=== PATIENT | female | born 1940 | race Caucasian/White ===

== ENCOUNTER 2016-08-18 05:21 | Day surgery (SDC) | payer MEDICARE, OTHER ==
[~2016-08-18] VITALS: Ht 160 cm; Wt 57.0 kg
[~2016-08-18 05:21] MED LIST: ACET325T14 PO; AMLO10TA2 PO; ASPI-496 PO; AZIT500T77 PO; CEFD300C37 PO; CIPR500T87 PO; CYCL1DRO OP; DILT360C PO; DOXY100T PO; GUAI200T3 PO; GUAI5SYR PO; HYDR12.53 PO; IPRA3AMP INH; LEVO500T33 PO; LEVO75TA5 PO; LOSA1TAB18 PO; LOSA50TA2 PO; MAGN400T26 PO; MOME13HF INH; POTA20TA89 PO; PRAV40TA2 PO; PRED10TA PO; PRED20TA PO; [UNRECOGNIZED DRUG - OTHER]
[2016-08-18 06:10] VITALS: BP 154/75
[2016-08-18] MEDS ORDERED: LACTATED RINGERS 1,000 ML IV SCH (06:10)
[2016-08-18] MEDS ORDERED: BUPIVACAINE/PF 0.5% ONE (06:17)
[2016-08-18] MEDS ORDERED: methylPREDNISolone *ACETATE* 40 MG/ML ONE (06:17)
[2016-08-18] MEDS ORDERED: MAGN400T7 PO (06:45)
[2016-08-18] MEDS ORDERED: LOSA100T2 PO ×2 (06:45)
[2016-08-18] MEDS ORDERED: TRAM50TA2 PO (06:45)
[2016-08-18] MEDS ORDERED: DOCU-30 PO (06:45)
[2016-08-18] MEDS ORDERED: PROPOFOL 10 MG/ML, 20ML ONE (06:51)
[2016-08-18] MEDS ORDERED: DEXAMETHASONE 4 MG/ML, 1ML ONE (06:51)
[2016-08-18] MEDS ORDERED: ONDANSETRON 2MG/ML, 2ML ONE (06:51)
[2016-08-18 06:52] LABS: ASPARTATE AMINO TRANSFERASE 74 U/L (15-37); BLOOD UREA NITROGEN 12 mg/dL (7-18)
[2016-08-18] MEDS ORDERED: ONDANSETRON 2MG/ML, 2ML IVPush PRN (07:00)
[2016-08-18] MEDS ORDERED: OXYcodone 5 MG/5 ML ORAL.SOL UDC PO PRN (07:00)
[2016-08-18] MEDS ORDERED: ALBUTEROL SULFATE 2.5 MG/3 ML NPPB PRN (07:00)
[2016-08-18] MEDS ORDERED: ACETAMINOPHEN 325 MG TABLET PO PRN (07:00)
[2016-08-18] MEDS ORDERED: FENTANYL PF 100 MCG/2ML IV PRN (07:00)
[2016-08-18] MEDS ORDERED: MEPERIDINE/PF 25MG/0.5ML IVPush PRN (07:00)
[2016-08-18] MEDS ORDERED: PROMETHAZINE 25 MG/ML, 1ML IV PRN (07:00)
[2016-08-18] MEDS ORDERED: hydrALAzine 20 MG/ML, 1ML IV PRN (07:00)
[2016-08-18] MEDS ORDERED: HYDROmorphone 1 MG/ML, 1ML IV PRN (07:00)
[2016-08-18] MEDS ORDERED: MIDAZOLAM 1 MG/ML, 2ML IV PRN (07:00)
[2016-08-18] MEDS ORDERED: LABETALOL 5MG/ML, 20ML IV PRN (07:00)
[2016-08-24] MEDS ORDERED: NITR0.4T8 SL (12:11)
[2016-08-24] MEDS ORDERED: ECON15CR TD (12:11)
[2016-08-24] MEDS ORDERED: FURO20TA3 PO (12:11)
== END 2016-08-18 08:30 | disposition home or self-care (01) ==
LOC: OUT 05:21
PROVIDERS: ATTEND Orthopaedic Surgery
DX: M16.7 Other unilateral secondary osteoarthritis of hip (principal); M87.851 Other osteonecrosis, right femur; I10 Essential (primary) hypertension; J44.9 Chronic obstructive pulmonary disease, unspecified; J84.10 Pulmonary fibrosis, unspecified; E03.9 Hypothyroidism, unspecified; E78.5 Hyperlipidemia, unspecified; Z99.81 Dependence on supplemental oxygen
CPT/HCPCS: 20610; 36415; 73501; 77002; 80053; J1100; J2405; J2704; J3490; J7120; 76000; J1030

== ENCOUNTER → 2016-08-24 | Outpatient (CLI) | payer MEDICARE, OTHER ==
[~2016-08-24] MED LIST changes: +DOCU-30 PO; +ECON15CR TD; +FURO20TA3 PO; +LOSA100T2 PO; +MAGN400T7 PO; +NITR0.4T8 SL; +TRAM50TA2 PO
[2016-08-24 13:01] LABS: ASPARTATE AMINO TRANSFERASE 79 U/L (15-37); BLOOD UREA NITROGEN 13 mg/dL (7-18)
== END | disposition home or self-care (01) ==
LOC: STAR 11:36
PROVIDERS: ATTEND Orthopaedic Surgery
DX: M16.7 Other unilateral secondary osteoarthritis of hip (principal)
CPT/HCPCS: 36415; 80053; 81003; 85025; 87081

== ENCOUNTER 2016-09-03 09:17 | Inpatient (IN) | payer MEDICARE, OTHER ==
[~2016-09-03] VITALS: Ht 160 cm; Wt 63.8 kg
[2016-09-03] MEDS ORDERED: LACTATED RINGERS 1,000 ML IV SCH (09:43)
[2016-09-03] MEDS ORDERED: VANCOMYCIN PER PHARMACY MC PRN (10:00)
[2016-09-03] MEDS ORDERED: VANCOMYCIN PMX 1GM/200ML 200 ML IV ONE (10:00)
[2016-09-03] MEDS ORDERED: SCOPOLAMINE PATCH, 1.5MG PATCH.TD72 TD STA (10:00)
[2016-09-03] MEDS ORDERED: SCOPOLAMINE PATCH, 1.5MG PATCH.TD72 TD ONE (10:13)
[2016-09-03] MEDS ORDERED: LIDOCAINE 1%, 2ML ONE (10:14)
[2016-09-03] MEDS ORDERED: KETOROLAC 60 MG/2 ML ONE (10:22)
[2016-09-03] MEDS ORDERED: TRANEXAMIC ACID 100 MG/ML, 10ML ONE (10:22)
[2016-09-03] MEDS ORDERED: ROPIvacaine/PF 0.2%, 20 ML ONE (10:22)
[2016-09-03] MEDS ORDERED: EPINEPHRINE 1 MG/ML, 1ML ONE (10:23)
[2016-09-03] MEDS ORDERED: LIDOCAINE 1%, 2ML SQ PRN (11:00)
[2016-09-03] MEDS ORDERED: FENTANYL PF 250 MCG/5ML ONE (11:02)
[2016-09-03] MEDS ORDERED: FENTANYL PF 100 MCG/2ML ONE ×3 (11:37→14:21)
[2016-09-03] MEDS ORDERED: HYDROmorphone 1 MG/ML, 1ML IV PRN ×2 (12:00→14:00)
[2016-09-03] MEDS ORDERED: hydrALAzine 20 MG/ML, 1ML IV PRN (12:00)
[2016-09-03] MEDS ORDERED: MEPERIDINE/PF 25MG/0.5ML IVPush PRN (12:00)
[2016-09-03] MEDS ORDERED: MIDAZOLAM 1 MG/ML, 2ML IV PRN (12:00)
[2016-09-03] MEDS ORDERED: LABETALOL 5MG/ML, 20ML IV PRN (12:00)
[2016-09-03] MEDS ORDERED: ONDANSETRON 2MG/ML, 2ML IVPush PRN (12:00)
[2016-09-03] MEDS ORDERED: PROMETHAZINE 25 MG/ML, 1ML IV PRN (12:00)
[2016-09-03] MEDS ORDERED: OXYcodone 5 MG/5 ML ORAL.SOL UDC PO PRN (12:00)
[2016-09-03] MEDS ORDERED: ALBUTEROL SULFATE 2.5 MG/3 ML NPPB PRN (12:00)
[2016-09-03] MEDS ORDERED: BISACODYL 10 MG SUPP PR PRN (14:00)
[2016-09-03] MEDS ORDERED: ONDANSETRON 4 MG TABLET PO PRN (14:00)
[2016-09-03] MEDS ORDERED: SENNA/DOCUSATE TABLET PO PRN (14:00)
[2016-09-03] MEDS ORDERED: ALUMINUM/MAG/SIMETHICONE 30 ML UDC PO PRN (14:00)
[2016-09-03] MEDS ORDERED: MAGNESIUM HYDROXIDE 8%, 30ML UDC PO PRN (14:00)
[2016-09-03] MEDS ORDERED: HYDROcodone/APAP 5/325 TABLET PO PRN (14:00)
[2016-09-03] MEDS ORDERED: OXYcodone 5 MG/5 ML ORAL.SOL UDC ONE ×2 (14:21→14:33)
[2016-09-03] MEDS: FENTANYL PF 100 MCG/2ML IV PRN ×3 (14:30→14:50)
[2016-09-03] MEDS ORDERED: DEXAMETHASONE 4 MG/ML, 1ML ONE (15:35)
[2016-09-03] MEDS ORDERED: ONDANSETRON 2MG/ML, 2ML ONE (15:35)
[2016-09-03] MEDS ORDERED: PROPOFOL 10 MG/ML, 20ML ONE (15:35)
[2016-09-03] MEDS ORDERED: ROCURONIUM 10 MG/ML ONE (15:35)
[2016-09-03] MEDS ORDERED: SUCCINYLCHOLINE 20 MG/ML, 10ML ONE (15:35)
[2016-09-03 15:58] VITALS: BP 118/68
[2016-09-03] MEDS: D5%-0.45NACL+KCL 20MEQ 1,000 ML IV SCH ×2 (16:00→21:42)
[2016-09-03] MEDS ORDERED: NITROGLYCERIN 0.4 MG BOTTLE (25 TABS) SL PRN (17:00)
[2016-09-03] MEDS ORDERED: PHARMACOKINETIC MONITORING MC PRN (17:30)
[2016-09-03] MEDS: CEFAZOLIN PMX 1GM/50ML 50 ML IVPB SCH (18:21)
[2016-09-03 19:45] VITALS: BP 123/58
[2016-09-03] MEDS ORDERED: LOSARTAN 50MG TABLET PO SCH (21:00)
[2016-09-03] MEDS: PRAVASTATIN 40 MG TABLET PO SCH (21:31)
[2016-09-03] MEDS: DOCUSATE 100 MG CAPSULE PO SCH (21:31)
[2016-09-03] MEDS: RESTASIS EYE OP SCH (21:42)
[2016-09-03] MEDS ORDERED: SODIUM CHLORIDE 0.9% 1,000ML IVBOLUS ONE (23:30)
[2016-09-04 00:34] VITALS: BP 76/45
[2016-09-04] MEDS: CEFAZOLIN PMX 1GM/50ML 50 ML IVPB SCH (01:19)
[2016-09-04] MEDS: VANCOMYCIN PMX 1GM/200ML 200 ML IV SCH (04:57)
[2016-09-04] MEDS: LEVOTHYROXINE 75 MCG TABLET PO SCH (05:03)
[2016-09-04 05:24] VITALS: BP 97/39
[2016-09-04 06:30] VITALS: BP 95/48
[2016-09-04] MEDS: FUROSEMIDE 40 MG TABLET PO SCH (08:11)
[2016-09-04] MEDS: DOCUSATE 100 MG CAPSULE PO SCH ×2 (08:11→22:03)
[2016-09-04] MEDS: POTASSIUM CHLORIDE 20 MEQ TAB.ER.PRT PO SCH (08:12)
[2016-09-04] MEDS: LOSARTAN 50MG TABLET PO SCH (08:12)
[2016-09-04] MEDS: RESTASIS EYE OP SCH ×2 (08:12→22:03)
[2016-09-04 14:55] VITALS: BP 94/54
[2016-09-04] MEDS: D5%-0.45NACL+KCL 20MEQ 1,000 ML IV SCH (16:28)
[2016-09-04] MEDS: ASPIRIN 325 MG TABLET EC PO SCH (17:50)
[2016-09-04 19:20] VITALS: BP 92/46
[2016-09-04] MEDS: PRAVASTATIN 40 MG TABLET PO SCH (22:03)
[2016-09-05 01:42] VITALS: BP 100/57
[2016-09-05] MEDS: VANCOMYCIN PMX 1GM/200ML 200 ML IV SCH (05:32)
[2016-09-05] MEDS: LEVOTHYROXINE 75 MCG TABLET PO SCH (05:32)
[2016-09-05] MEDS: ASPIRIN 325 MG TABLET EC PO SCH (05:32)
[2016-09-05] MEDS: D5%-0.45NACL+KCL 20MEQ 1,000 ML IV SCH (05:48)
[2016-09-05 08:07] VITALS: BP 115/64
[2016-09-05] MEDS ORDERED: DOCU-30 PO (08:18)
[2016-09-05] MEDS ORDERED: HYDR-3240 PO (08:18)
[2016-09-05] MEDS: RESTASIS EYE OP SCH (10:45)
[2016-09-05] MEDS: FUROSEMIDE 40 MG TABLET PO SCH (10:46)
[2016-09-05] MEDS: DOCUSATE 100 MG CAPSULE PO SCH (10:46)
[2016-09-05] MEDS: LOSARTAN 50MG TABLET PO SCH (10:46)
[2016-09-05] MEDS: POTASSIUM CHLORIDE 20 MEQ TAB.ER.PRT PO SCH (10:47)
[2016-09-05 13:10] VITALS: BP 117/68
== END 2016-09-05 14:11 | disposition home or self-care (01) | DRG 470 ==
LOC: ORIP 09:17 → 4NOR 15:48
PROVIDERS: ADMIT Orthopaedic Surgery; ATTEND Orthopaedic Surgery
PROC: 0SP904Z Removal of Internal Fixation Device from Right Hip Joint, Open Approach (ICD-10-PCS; 2016-09-03)
PROC: 0SR902Z Replacement of Right Hip Joint with Metal on Polyethylene Synthetic Substitute, Open Approach (ICD-10-PCS; principal; 2016-09-03 11:00)
DX: M16.11 Unilateral primary osteoarthritis, right hip (principal); D62 Acute posthemorrhagic anemia; E03.9 Hypothyroidism, unspecified; E78.00 Pure hypercholesterolemia, unspecified; I10 Essential (primary) hypertension; I25.10 Atherosclerotic heart disease of native coronary artery without angina pectoris; J44.9 Chronic obstructive pulmonary disease, unspecified; M21.70 Unequal limb length (acquired), unspecified site; M85.80 Other specified disorders of bone density and structure, unspecified site; Z87.891 Personal history of nicotine dependence; Z96.641 Presence of right artificial hip joint; I25.2 Old myocardial infarction; E78.5 Hyperlipidemia, unspecified
CPT/HCPCS: 36415; 72170; 82565; 85014; 86850; 86900; C1713; J0171; J0690; J1100; J1885; J2405; J2704; J2795; J3010; J3370; J3490; C1769; C1776; J0330; J3480; J7030; J7120

== ENCOUNTER 2017-01-20 10:00 | Observation (INO) | payer MEDICARE, OTHER ==
[~2017-01-20] VITALS: Ht 152.4 cm; Wt 56.9 kg
[~2017-01-20 10:00] MED LIST changes: +AZIT500T5 PO; -AZIT500T77 PO; +DOCU-131 PO; -DOCU-30 PO; +HYDR-3240 PO; -LEVO500T33 PO; +LEVO500T47 PO; +NITR0.4T28 SL; -NITR0.4T8 SL
[2017-01-20] MEDS ORDERED: SODIUM CHLORIDE 0.9% 1,000 ML IV ONE (10:22)
[2017-01-20] MEDS ORDERED: SODIUM CHLORIDE FLUSH 10ML SYR IVF ONE (10:30)
[2017-01-20 11:10] LABS: HEMATOCRIT 41.2 % (34.6-47.8); HEMOGLOBIN 13.4 g/dL (11.7-16.4); WHITE BLOOD COUNT 8.9 x10^3/uL (3.4-10)
[2017-01-20 11:16] LABS: ASPARTATE AMINO TRANSFERASE 59 U/L (15-37); BLOOD UREA NITROGEN 17 mg/dL (7-18)
[2017-01-20 11:23] LABS: IS PT STATUS REG ER OR PRE ER? YES
[2017-01-20] MEDS ORDERED: CEFAZOLIN PMX 1GM/50ML 50 ML IVPB ONE (11:30)
[2017-01-20] MEDS ORDERED: ACETAMINOPHEN 325 MG TABLET PO PRN (11:30)
[2017-01-20] MEDS ORDERED: LOSA1TAB16 PO (11:44)
[2017-01-20] MEDS ORDERED: [UNRECOGNIZED DRUG - CODE] TP (11:44)
[2017-01-20] MEDS ORDERED: DOCU-131 PO (11:44)
[2017-01-20] MEDS ORDERED: CELE200C PO (11:44)
[2017-01-20] MEDS ORDERED: NITROGLYCERIN 0.4 MG BOTTLE (25 TABS) SL PRN (12:00)
[2017-01-20] MEDS ORDERED: CEFAZOLIN PMX 1GM/50ML 0 ML ONE (12:06)
[2017-01-20] MEDS ORDERED: CEFAZOLIN PMX 1GM/50ML 50 ML ONE ×2 (12:15→13:08)
[2017-01-20] MEDS: SODIUM CHLORIDE 0.9% 1,000 ML IV SCH ×2 (12:18→15:32)
[2017-01-20] MEDS ORDERED: CEFAZOLIN 1,000 MG ONE (13:08)
[2017-01-20] MEDS ORDERED: MIDAZOLAM 1 MG/ML, 5ML ONE (13:08)
[2017-01-20] MEDS ORDERED: LIDOCAINE 2%, 20ML ONE (13:08)
[2017-01-20] MEDS ORDERED: FENTANYL PF 100 MCG/2ML ONE (13:08)
[2017-01-20] MEDS ORDERED: HYDROcodone/APAP 5/325 TABLET PO PRN (15:00)
[2017-01-20 15:08] VITALS: BP 158/73
[2017-01-20] MEDS: PLEASE ENTER WEIGHT MC SCH ×2 (15:32→20:00)
[2017-01-20] MEDS ORDERED: MAGNESIUM SULFATE PMX 2GM/50ML 50 ML IV ONE (16:00)
[2017-01-20 20:56] VITALS: BP 132/78
[2017-01-20] MEDS ORDERED: ASPIRIN 81 MG TABLET EC PO SCH (21:00)
[2017-01-20] MEDS ORDERED: PRAVASTATIN 40 MG TABLET PO SCH (21:00)
[2017-01-20] MEDS ORDERED: SODIUM CHLORIDE FLUSH 10ML SYR IVF SCH (21:00)
[2017-01-20] MEDS: DOCUSATE 100 MG CAPSULE PO SCH (21:09)
[2017-01-20] MEDS: CEFAZOLIN PMX 1GM/50ML 50 ML IVPB SCH (21:09)
[2017-01-20] MEDS: SODIUM CHLORIDE FLUSH 10ML SYR IVF SCH (21:14)
[2017-01-21] MEDS ORDERED: VANCOMYCIN PMX 1GM/200ML 200 ML IVPB ONE (01:00)
[2017-01-21 02:07] VITALS: BP 168/98
[2017-01-21] MEDS: SODIUM CHLORIDE 0.9% 1,000 ML IV SCH ×2 (03:27→09:40)
[2017-01-21] MEDS: PLEASE ENTER WEIGHT MC SCH (04:00)
[2017-01-21 04:30] VITALS: BP 150/77
[2017-01-21] MEDS: CEFAZOLIN PMX 1GM/50ML 50 ML IVPB SCH (05:18)
[2017-01-21 08:45] VITALS: BP 173/92
[2017-01-21] MEDS: DOCUSATE 100 MG CAPSULE PO SCH (09:00)
[2017-01-21] MEDS ORDERED: LEVOTHYROXINE 75 MCG TABLET PO SCH (09:00)
[2017-01-21] MEDS ORDERED: FUROSEMIDE 40 MG TABLET PO SCH (09:00)
[2017-01-21] MEDS ORDERED: LOSARTAN 50MG TABLET PO SCH (09:00)
[2017-01-21] MEDS ORDERED: POTASSIUM CHLORIDE 20 MEQ TAB.ER.PRT PO SCH ×2 (09:00→14:00)
[2017-01-21] MEDS: SODIUM CHLORIDE FLUSH 10ML SYR IVF SCH (09:34)
[2017-01-21 14:22] VITALS: BP 125/87
[2017-01-21] MEDS ORDERED: DOCUSATE 100 MG CAPSULE PO SCH (21:00)
[2017-01-22] MEDS ORDERED: FUROSEMIDE 40 MG TABLET PO SCH (09:00)
== END 2017-01-21 15:26 | disposition home or self-care (01) ==
LOC: ED 11:29 → EDIP 11:30 → ED 12:24 → 5SO 14:57 → DCLOUNGE 01-21 14:43
PROVIDERS: ADMIT Internal Medicine Cardiovascular Disease; ATTEND Internal Medicine Cardiovascular Disease
DX: I44.2 Atrioventricular block, complete (principal); I25.10 Atherosclerotic heart disease of native coronary artery without angina pectoris; I25.2 Old myocardial infarction; E78.5 Hyperlipidemia, unspecified; J44.9 Chronic obstructive pulmonary disease, unspecified; E03.9 Hypothyroidism, unspecified; E83.42 Hypomagnesemia; E87.1 Hypo-osmolality and hyponatremia; I11.0 Hypertensive heart disease with heart failure; M19.90 Unspecified osteoarthritis, unspecified site; J43.9 Emphysema, unspecified; I50.9 Heart failure, unspecified; Z87.891 Personal history of nicotine dependence; Z96.641 Presence of right artificial hip joint; Z90.49 Acquired absence of other specified parts of digestive tract; Z90.710 Acquired absence of both cervix and uterus; Z99.81 Dependence on supplemental oxygen
CPT/HCPCS: 33208; 36415; 71010; 80053; 83735; 84443; 84484; 85025; 85610; 93005; 96365; 96366; 96367; 96376; 99156; 99157; 99291; C1779; C1785; C1892; G0378; J0690; J2250; J3010; J3475; J3490; J7030

== ENCOUNTER → 2017-09-13 | Outpatient (CLI) | payer MEDICARE, OTHER ==
[~2017-09-13] MED LIST changes: +CELE200C PO; -LOSA1TAB18 PO; +LOSA1TAB19 PO; +LOSA1TAB25 PO; +[UNRECOGNIZED DRUG - CODE] TP
== END ==
LOC: CFH 11:10
PROVIDERS: ATTEND Genetic Counselor, MS
DX: Z12.31 Encounter for screening mammogram for malignant neoplasm of breast (principal)
CPT/HCPCS: 77063; 77067

== ENCOUNTER → 2017-09-24 | Outpatient (CLI) | payer MEDICARE, OTHER ==
[~2017-09-24] MED LIST changes: +REGADENOSON 0.4 MG/5 ML SYRINGE ONE
== END | disposition home or self-care (01) ==
LOC: CFH 08:11
PROVIDERS: ATTEND Internal Medicine Cardiovascular Disease
DX: I25.89 Other forms of chronic ischemic heart disease (principal); Z98.61 Coronary angioplasty status
CPT/HCPCS: 78452; 93017; A9502; J2785

== ENCOUNTER → 2017-11-08 | Outpatient (CLI) | payer MEDICARE, OTHER ==
[~2017-11-08] MED LIST changes: -IPRA3AMP INH; +IPRA3AMP30 INH; -REGADENOSON 0.4 MG/5 ML SYRINGE ONE
== END | disposition home or self-care (01) ==
LOC: CFH 15:34
PROVIDERS: ATTEND Internal Medicine Cardiovascular Disease
DX: J44.9 Chronic obstructive pulmonary disease, unspecified (principal); R59.0 Localized enlarged lymph nodes; I25.10 Atherosclerotic heart disease of native coronary artery without angina pectoris; I51.7 Cardiomegaly
CPT/HCPCS: 71250

== ENCOUNTER 2018-01-21 09:40 | Inpatient (IN) | payer MEDICARE, OTHER ==
[~2018-01-21] VITALS: Ht 157.5 cm; Wt 61.1 kg
[~2018-01-21 09:40] MED LIST changes: -AMLO10TA2 PO; +AMLO10TA6 PO
[2018-01-21] MEDS ORDERED: SODIUM CHLORIDE FLUSH 10ML SYR IVF ONE (10:00)
[2018-01-21] MEDS ORDERED: ALBUTEROL/IPRATROPIUM 2.5MG/0.5MG, 3 ML ONE (10:26)
[2018-01-21 10:31] LABS: ALANINE AMINOTRANSFERASE 27 U/L (12-78); ALBUMIN 3.1 g/dL (3.4-5.0); ANION GAP 7 mmol/L (5-15); CHLORIDE 99 mmol/L (98-107); CREATININE 0.79 mg/dL (0.55-1.02)
[2018-01-21 10:33] LABS: ALKALINE PHOSPHATASE 207 U/L (45-117); BILIRUBIN,TOTAL 0.6 mg/dL (0.2-1.0); TOTAL PROTEIN 7.5 g/dL (6.4-8.2)
[2018-01-21] MEDS: ALBUTEROL/IPRATROPIUM 2.5MG/0.5MG, 3 ML NPPB SCH ×4 (10:40→19:28)
[2018-01-21 10:44] LABS: MEAN CORPUSCULAR HEMOGLOBIN 24.5 pg (27.0-34.8); MEAN CORPUSCULAR HGB CONC 31.7 g/dL (32.4-35.8); MEAN CORPUSCULAR VOLUME 77.2 fL (80-100); MEAN PLATELET VOLUME 12.1 fL (7.4-10.4); PLATELET COUNT 231 x10^3/uL (130-400); RED BLOOD COUNT 5.07 x10^6/uL (3.82-5.3); RED CELL DISTRIBUTION WIDTH 16.7 % (9.6-15.2)
[2018-01-21 11:10] LABS: BASOPHILS # (AUTO) 0.02 x10^3/uL (0-0.1); BASOPHILS % (AUTO) 0 % (0-1); EOSINOPHILS # (AUTO) 0.33 x10^3/uL (0-0.4); EOSINOPHILS % (AUTO) 5 % (1-7); LYMPHOCYTES # (AUTO) 2.28 x10^3/uL (1-3.4); LYMPHOCYTES % (AUTO) 31 % (22-44); MD SCAN; MONOCYTES # (AUTO) 0.32 x10^3/uL (0.2-0.8); MONOCYTES % (AUTO) 4 % (2-9); NEUTROPHILS # (AUTO) 4.41 x10^3/uL (1.8-6.8); NEUTROPHILS % (AUTO) 60 % (42-75)
[2018-01-21] MEDS ORDERED: CEFTRIAXONE 1,000 MG in SODIUM CHLORIDE 0.9% 50 ML IVPB ONE (12:00)
[2018-01-21] MEDS ORDERED: TRAZODONE 50MG TABLET PO PRN (13:30)
[2018-01-21] MEDS ORDERED: ACETAMINOPHEN 325 MG TABLET PO PRN (13:30)
[2018-01-21] MEDS ORDERED: LABETALOL 5MG/ML, 20ML IVPush PRN (13:30)
[2018-01-21] MEDS ORDERED: DOCUSATE 100 MG CAPSULE PO PRN (13:30)
[2018-01-21] MEDS ORDERED: BISACODYL 10 MG SUPP PR PRN (13:30)
[2018-01-21] MEDS ORDERED: hydrALAzine 20 MG/ML, 1ML IVPush PRN (13:30)
[2018-01-21 13:45] VITALS: BP 136/69
[2018-01-21 14:16] LABS: THYROID STIMULATING HORMONE 4.38 mIU/L (0.358-3.740)
[2018-01-21] MEDS: DOXYCYCLINE 100 MG in DEXTROSE 5% 250 ML IV SCH (14:25)
[2018-01-21] MEDS: CEFTRIAXONE PMX 1GM/50ML 50 ML IV SCH (15:41)
[2018-01-21 18:45] LABS: D-DIMER 1.58 ug/mlFEU (0.00-0.52); INTERNATIONAL NORMALIZED RATIO 0.99 (0.93-1.1); PROTHROMBIN TIME 10.2 Seconds (9.6-11.5)
[2018-01-21 20:33] VITALS: BP 125/66
[2018-01-21] MEDS: FUROSEMIDE 20 MG/2 ML IV SCH (20:50)
[2018-01-21] MEDS: ASPIRIN 81 MG TABLET EC PO SCH (20:50)
[2018-01-21] MEDS: PRAVASTATIN 40 MG TABLET PO SCH (20:50)
[2018-01-22] MEDS: DOXYCYCLINE 100 MG in DEXTROSE 5% 250 ML IV SCH (01:57)
[2018-01-22 03:21] VITALS: BP 118/70
[2018-01-22 05:32] LABS: MEAN CORPUSCULAR HEMOGLOBIN 24.3 pg (27.0-34.8); MEAN CORPUSCULAR HGB CONC 32.2 g/dL (32.4-35.8); MEAN CORPUSCULAR VOLUME 75.7 fL (80-100); MEAN PLATELET VOLUME 11.5 fL (7.4-10.4); PLATELET COUNT 224 x10^3/uL (130-400); RED BLOOD COUNT 4.55 x10^6/uL (3.82-5.3); RED CELL DISTRIBUTION WIDTH 16.2 % (9.6-15.2)
[2018-01-22 05:35] LABS: CHLORIDE 97 mmol/L (98-107)
[2018-01-22] MEDS ORDERED: OMNIPAQUE 350 MG/ML, 100ML BOTTLE ONE (05:40)
[2018-01-22 05:59] LABS: ALANINE AMINOTRANSFERASE 20 U/L (12-78); ALBUMIN 2.5 g/dL (3.4-5.0); ALKALINE PHOSPHATASE 163 U/L (45-117); ANION GAP 10 mmol/L (5-15); BILIRUBIN,TOTAL 0.3 mg/dL (0.2-1.0); CALCIUM 8.4 mg/dL (8.5-10.1); CHOL/HDL RATIO 2.6; CHOLESTEROL, TOTAL 146 mg/dL (140-239); CREATININE 0.74 mg/dL (0.55-1.02); HDL CHOL % 38 % (28-40); HDL CHOLESTEROL (DIRECT) 56 mg/dL (40-60); LDL CHOLESTEROL,CALCULATED 83 mg/dL (54-169); LDL/HDL RATIO 1.5 (0.5-3.0); TOTAL PROTEIN 6.5 g/dL (6.4-8.2); TRIGLYCERIDES 34 mg/dL (50-200); VLDL CHOLESTEROL 7 mg/dL (0-25)
[2018-01-22] MEDS ORDERED: MAGNESIUM SULFATE 3 GM in SODIUM CHLORIDE 0.9% 100 ML IV ONE (06:30)
[2018-01-22] MEDS: ALBUTEROL/IPRATROPIUM 2.5MG/0.5MG, 3 ML NPPB SCH ×3 (07:00→18:53)
[2018-01-22 07:46] LABS: ANISOCYTOSIS 1+; BASOPHILS # (AUTO) 0.16 x10^3/uL (0-0.1); BASOPHILS % (AUTO) 2 % (0-1); EOSINOPHILS # (AUTO) 0.18 x10^3/uL (0-0.4); EOSINOPHILS % (AUTO) 2 % (1-7); LYMPHOCYTES % (AUTO) 13 % (22-44); MD MORPH REVIEW ONLY; MICROCYTOSIS 1+; MONOCYTES % (AUTO) 9 % (2-9); NEUTROPHILS % (AUTO) 75 % (42-75); OVALOCYTES 1+
[2018-01-22 07:47] LABS: <PLATELET ESTIMATE> ADEQUATE; LARGE PLATELETS 1+
[2018-01-22 08:00] VITALS: BP 126/71
[2018-01-22] MEDS: FUROSEMIDE 20 MG/2 ML IV SCH ×2 (08:29→20:04)
[2018-01-22] MEDS: LOSARTAN 50MG TABLET PO SCH (08:30)
[2018-01-22] MEDS: LEVOTHYROXINE 88 MCG TABLET PO SCH (08:30)
[2018-01-22] MEDS ORDERED: TEMPLATE NON-FORMULARY MED. (Losartan/Hydrochlorothiazide** (Losartan-Hctz 50-12.5 Mg Tab PO SCH (09:00)
[2018-01-22] MEDS ORDERED: HYDROCHLOROTHIAZIDE 12.5 MG CAPSULE PO SCH (09:00)
[2018-01-22] MEDS: ECONAZOLE NITRATE TP SCH (09:00)
[2018-01-22] MEDS ORDERED: LEVOTHYROXINE 75 MCG TABLET PO SCH (09:00)
[2018-01-22] MEDS ORDERED: FUROSEMIDE 40 MG TABLET PO SCH (09:00)
[2018-01-22] MEDS ORDERED: MAGNESIUM SULFATE PMX 2GM/50ML 50 ML IV ONE (10:00)
[2018-01-22] MEDS ORDERED: ALBUTEROL/IPRATROPIUM 2.5MG/0.5MG, 3 ML ONE ×2 (10:26→13:55)
[2018-01-22] MEDS: AZITHROMYCIN 500 MG in SODIUM CHLORIDE 0.9% 250 ML IV SCH (11:39)
[2018-01-22 13:31] VITALS: BP 132/79
[2018-01-22] MEDS: CEFTRIAXONE PMX 1GM/50ML 50 ML IV SCH (15:48)
[2018-01-22 20:01] VITALS: BP 119/71
[2018-01-22] MEDS: ASPIRIN 81 MG TABLET EC PO SCH (20:04)
[2018-01-22] MEDS: PRAVASTATIN 40 MG TABLET PO SCH (20:04)
[2018-01-23 01:21] VITALS: BP 123/69
[2018-01-23 06:46] VITALS: BP 139/85
[2018-01-23] MEDS: ALBUTEROL/IPRATROPIUM 2.5MG/0.5MG, 3 ML NPPB SCH ×2 (08:13→14:31)
[2018-01-23] MEDS: ECONAZOLE NITRATE TP SCH (09:00)
[2018-01-23] MEDS: FUROSEMIDE 20 MG/2 ML IV SCH (09:03)
[2018-01-23] MEDS: LOSARTAN 50MG TABLET PO SCH (09:04)
[2018-01-23] MEDS: LEVOTHYROXINE 88 MCG TABLET PO SCH (09:06)
[2018-01-23] MEDS: AZITHROMYCIN 500 MG in SODIUM CHLORIDE 0.9% 250 ML IV SCH (09:09)
[2018-01-23] MEDS ORDERED: CEFD300C37 PO (12:10)
[2018-01-23] MEDS ORDERED: AZIT500T5 PO (12:10)
[2018-01-23 12:16] VITALS: BP 116/75
[2018-01-23] MEDS: CEFTRIAXONE PMX 1GM/50ML 50 ML IV SCH (15:54)
== END 2018-01-23 18:27 | disposition home or self-care (01) | DRG 177 ==
LOC: ED 11:05 → EDIP 11:47 → 3NE 13:24 → 4WST 18:16
PROVIDERS: ADMIT Hospitalist; ATTEND Hospitalist
DX: J15.1 Pneumonia due to Pseudomonas (principal); J96.21 Acute and chronic respiratory failure with hypoxia; J44.1 Chronic obstructive pulmonary disease with (acute) exacerbation; I44.2 Atrioventricular block, complete; E87.1 Hypo-osmolality and hyponatremia; J44.0 Chronic obstructive pulmonary disease with (acute) lower respiratory infection; E78.5 Hyperlipidemia, unspecified; I50.9 Heart failure, unspecified; K59.09 Other constipation; E03.9 Hypothyroidism, unspecified; Z96.641 Presence of right artificial hip joint; J84.10 Pulmonary fibrosis, unspecified; R74.8 Abnormal levels of other serum enzymes; R74.0 Nonspecific elevation of levels of transaminase and lactic acid dehydrogenase [LDH]; I11.0 Hypertensive heart disease with heart failure; I25.10 Atherosclerotic heart disease of native coronary artery without angina pectoris; I25.2 Old myocardial infarction; Z82.49 Family history of ischemic heart disease and other diseases of the circulatory system; Z87.891 Personal history of nicotine dependence; Z90.710 Acquired absence of both cervix and uterus; Z95.0 Presence of cardiac pacemaker; Z90.49 Acquired absence of other specified parts of digestive tract; Z90.89 Acquired absence of other organs; Z79.82 Long term (current) use of aspirin; Z79.899 Other long term (current) drug therapy
CPT/HCPCS: 36415; 71045; 71275; 80053; 80061; 83605; 83735; 83880; 84100; 84443; 85025; 85379; 85610; 85730; 87040; 87070; 87077; 87186; 87205; 93306; 94640; 99285; G0378; J0456; J0696; J3475; J7060; J7620; Q9967; J1940; J7050; J7512

== ENCOUNTER 2018-02-10 19:41 | Inpatient (IN) | payer MEDICARE, OTHER ==
[~2018-02-10] VITALS: Ht 152.4 cm; Wt 59.9 kg
[2018-02-10] MEDS: ALBUTEROL/IPRATROPIUM 2.5MG/0.5MG, 3 ML NPPB SCH ×2 (19:59→21:09)
[2018-02-10 20:21] LABS: ALANINE AMINOTRANSFERASE 25 U/L (12-78); ALBUMIN 3.2 g/dL (3.4-5.0); ANION GAP 7 mmol/L (5-15); CALCIUM 8.6 mg/dL (8.5-10.1); CHLORIDE 97 mmol/L (98-107); CREATININE 0.98 mg/dL (0.55-1.02)
[2018-02-10 20:23] LABS: ALKALINE PHOSPHATASE 190 U/L (45-117); BILIRUBIN,TOTAL 0.6 mg/dL (0.2-1.0); TOTAL PROTEIN 7.4 g/dL (6.4-8.2)
[2018-02-10 20:25] LABS: MEAN CORPUSCULAR HEMOGLOBIN 24.4 pg (27.0-34.8); MEAN CORPUSCULAR HGB CONC 32.1 g/dL (32.4-35.8); MEAN CORPUSCULAR VOLUME 76.1 fL (80-100); MEAN PLATELET VOLUME 12.5 fL (7.4-10.4); PLATELET COUNT 225 x10^3/uL (130-400); RED BLOOD COUNT 4.91 x10^6/uL (3.82-5.3); RED CELL DISTRIBUTION WIDTH 18.4 % (9.6-15.2)
[2018-02-10 20:42] LABS: BASOPHILS % (AUTO) 0 % (0-1); EOSINOPHILS # (AUTO) 0.63 x10^3/uL (0-0.4); EOSINOPHILS % (AUTO) 9 % (1-7); LYMPHOCYTES # (AUTO) 2.42 x10^3/uL (1-3.4); LYMPHOCYTES % (AUTO) 32 % (22-44); MD MORPH REVIEW ONLY; MONOCYTES % (AUTO) 12 % (2-9); NEUTROPHILS # (AUTO) 3.51 x10^3/uL (1.8-6.8); NEUTROPHILS % (AUTO) 47 % (42-75)
[2018-02-10 20:47] LABS: ANISOCYTOSIS 1+; MICROCYTOSIS 1+; OVALOCYTES 1+
[2018-02-10 20:48] LABS: <PLATELET ESTIMATE> ADEQUATE; LARGE PLATELETS 1+
[2018-02-10] MEDS ORDERED: ONDANSETRON 2MG/ML, 2ML IVPush PRN (23:30)
[2018-02-10] MEDS ORDERED: DOCUSATE 100 MG CAPSULE PO PRN (23:30)
[2018-02-10] MEDS ORDERED: PROMETHAZINE 25 MG/ML, 1ML IM PRN (23:30)
[2018-02-10] MEDS ORDERED: BISACODYL 10 MG SUPP PR PRN (23:30)
[2018-02-10] MEDS ORDERED: DOXYCYCLINE 100MG TABLET PO SCH (23:30)
[2018-02-10] MEDS ORDERED: hydrALAzine 20 MG/ML, 1ML IVPush PRN (23:30)
[2018-02-10] MEDS ORDERED: morphine SULFATE 10 MG/ML, 1ML IVPush PRN (23:30)
[2018-02-10] MEDS ORDERED: ONDANSETRON ODT 4 MG PO PRN (23:30)
[2018-02-10] MEDS ORDERED: AZITHROMYCIN 500 MG TABLET PO SCH (23:30)
[2018-02-10] MEDS ORDERED: POLYETHYLENE GLYCOL 17 GM PACKET PO PRN (23:30)
[2018-02-10] MEDS ORDERED: LABETALOL 5MG/ML, 20ML IVPush PRN (23:30)
[2018-02-10] MEDS: HEPARIN 5,000 UNITS/ML, 1ML SQ SCH (23:30)
[2018-02-10] MEDS ORDERED: OXYcodone IR 5MG TABLET PO PRN (23:30)
[2018-02-10] MEDS ORDERED: ACETAMINOPHEN 325 MG TABLET PO PRN (23:30)
[2018-02-10] MEDS ORDERED: GABAPENTIN 300 MG CAPSULE PO PRN (23:30)
[2018-02-10 23:34] VITALS: BP 138/73
[2018-02-11] MEDS ORDERED: FUROSEMIDE 20 MG/2 ML IV ONE
[2018-02-11] MEDS ORDERED: NITROGLYCERIN 0.4 MG BOTTLE (25 TABS) SL PRN
[2018-02-11 00:06] LABS: HEMOGLOBIN A1C 6.1 % (4.2-6.3)
[2018-02-11] MEDS: GUAIFENESIN ER 600 MG TABLET PO SCH ×3 (00:06→23:14)
[2018-02-11] MEDS: ASPIRIN 81 MG TABLET CHEW PO SCH ×2 (00:06→19:37)
[2018-02-11] MEDS: PRAVASTATIN 40 MG TABLET PO SCH ×2 (00:06→19:37)
[2018-02-11 00:08] LABS: FREE T4 (FREE THYROXINE) 1.26 ng/dL (0.76-1.46); THYROID STIMULATING HORMONE 4.52 mIU/L (0.358-3.740)
[2018-02-11 00:50] VITALS: BP 141/74
[2018-02-11 01:10] LABS: CULTURE INDICATED? NO; MICROSCOPIC NOT IND
[2018-02-11 05:45] LABS: ALBUMIN 2.8 g/dL (3.4-5.0); ANION GAP 7 mmol/L (5-15); CALCIUM 8.1 mg/dL (8.5-10.1); CHLORIDE 96 mmol/L (98-107)
[2018-02-11 05:49] LABS: ALANINE AMINOTRANSFERASE 21 U/L (12-78); ALKALINE PHOSPHATASE 165 U/L (45-117); BILIRUBIN,TOTAL 0.3 mg/dL (0.2-1.0); CHOL/HDL RATIO 2.3; CHOLESTEROL, TOTAL 176 mg/dL (140-239); CREATININE 1.02 mg/dL (0.55-1.02); HDL CHOL % 43 % (28-40); HDL CHOLESTEROL (DIRECT) 75 mg/dL (40-60); LDL CHOLESTEROL,CALCULATED 93 mg/dL (54-169); LDL/HDL RATIO 1.2 (0.5-3.0); TOTAL PROTEIN 6.3 g/dL (6.4-8.2); TRIGLYCERIDES 39 mg/dL (50-200); VLDL CHOLESTEROL 8 mg/dL (0-25)
[2018-02-11 06:23] LABS: MD YES; MEAN CORPUSCULAR HEMOGLOBIN 24.4 pg (27.0-34.8); MEAN CORPUSCULAR VOLUME 76.2 fL (80-100); MEAN PLATELET VOLUME 12.9 fL (7.4-10.4); PLATELET COUNT 209 x10^3/uL (130-400); RED BLOOD COUNT 4.61 x10^6/uL (3.82-5.3); RED CELL DISTRIBUTION WIDTH 18.4 % (9.6-15.2)
[2018-02-11 06:29] LABS: <PLATELET ESTIMATE> ADEQUATE; ANISOCYTOSIS 1+; BAND#(MANUAL) 0.08 x10^3/uL; BANDS%(MANUAL) 2 % (0-7); LARGE PLATELETS 1+; LYMPH#(MANUAL) 0.15 x10^3/uL (1-3.4); LYMPHS% (MANUAL) 4 % (22-44); MICROCYTOSIS 1+; OVALOCYTES 1+; SEG#(MANUAL) 3.57 x10^3/uL (1.8-6.8); SEGS% (MANUAL) 94 % (42-75)
[2018-02-11] MEDS: ALBUTEROL/IPRATROPIUM 2.5MG/0.5MG, 3 ML NPPB SCH ×4 (06:45→19:12)
[2018-02-11 07:24] VITALS: BP 120/74
[2018-02-11] MEDS: HEPARIN 5,000 UNITS/ML, 1ML SQ SCH ×3 (07:28→19:37)
[2018-02-11] MEDS: TEMPLATE NON-FORMULARY MED. (Cyclosporine (Restasis) 1 DROP) OP SCH ×3 (07:29→19:37)
[2018-02-11] MEDS: FUROSEMIDE 20 MG/2 ML IV SCH (07:34)
[2018-02-11] MEDS: LOSARTAN 50MG TABLET PO SCH (07:35)
[2018-02-11] MEDS: DOCUSATE 100 MG CAPSULE PO SCH (07:36)
[2018-02-11] MEDS: HYDROCHLOROTHIAZIDE 12.5 MG CAPSULE PO SCH (07:36)
[2018-02-11] MEDS: LEVOTHYROXINE 75 MCG TABLET PO SCH (07:36)
[2018-02-11] MEDS ORDERED: POTASSIUM CHLORIDE 20 MEQ TAB.ER.PRT PO SCH (09:00)
[2018-02-11 14:24] VITALS: BP 132/76
[2018-02-11 19:05] VITALS: BP 120/67
[2018-02-12 01:31] VITALS: BP 130/83
[2018-02-12] MEDS: ALBUTEROL/IPRATROPIUM 2.5MG/0.5MG, 3 ML NPPB SCH ×4 (05:42→20:00)
[2018-02-12 05:57] LABS: ANION GAP 8 mmol/L (5-15); CALCIUM 8.4 mg/dL (8.5-10.1); CHLORIDE 96 mmol/L (98-107)
[2018-02-12 05:59] LABS: CREATININE 0.79 mg/dL (0.55-1.02)
[2018-02-12 06:11] LABS: MEAN CORPUSCULAR HEMOGLOBIN 24.1 pg (27.0-34.8); MEAN CORPUSCULAR HGB CONC 31.9 g/dL (32.4-35.8); MEAN CORPUSCULAR VOLUME 75.7 fL (80-100); MEAN PLATELET VOLUME 12.8 fL (7.4-10.4); PLATELET COUNT 222 x10^3/uL (130-400); RED BLOOD COUNT 4.68 x10^6/uL (3.82-5.3); RED CELL DISTRIBUTION WIDTH 18.6 % (9.6-15.2)
[2018-02-12 06:35] LABS: MD YES
[2018-02-12 06:38] LABS: BAND#(MANUAL) 0.09 x10^3/uL; BANDS%(MANUAL) 1 % (0-7); BASOS#(MANUAL) 0.09 x10^3/uL (0-0.1); BASOS% (MANUAL) 1 % (0-1); EOS#(MANUAL) 0.28 x10^3/uL (0.0-0.4); EOS% (MANUAL) 3 % (1-7); LYMPH#(MANUAL) 2.98 x10^3/uL (1-3.4); LYMPHS% (MANUAL) 32 % (22-44); MONOS#(MANUAL) 0.37 x10^3/uL (0.3-2.7); MONOS% (MANUAL) 4 % (2-9); SEG#(MANUAL) 5.49 x10^3/uL (1.8-6.8); SEGS% (MANUAL) 59 % (42-75)
[2018-02-12 06:41] LABS: <PLATELET ESTIMATE> ADEQUATE; ANISOCYTOSIS 1+; HYPOCHROMIA 1+; LARGE PLATELETS 1+; MICROCYTOSIS 1+; OVALOCYTES 1+
[2018-02-12 07:16] VITALS: BP 133/82
[2018-02-12] MEDS: TEMPLATE NON-FORMULARY MED. (Cyclosporine (Restasis) 1 DROP) OP SCH ×2 (09:00→20:53)
[2018-02-12] MEDS: FUROSEMIDE 20 MG/2 ML IV SCH (10:00)
[2018-02-12] MEDS: HEPARIN 5,000 UNITS/ML, 1ML SQ SCH ×2 (10:00→15:30)
[2018-02-12] MEDS: GUAIFENESIN ER 600 MG TABLET PO SCH (10:01)
[2018-02-12] MEDS: DOCUSATE 100 MG CAPSULE PO SCH (10:01)
[2018-02-12] MEDS: LEVOTHYROXINE 75 MCG TABLET PO SCH (10:01)
[2018-02-12] MEDS: LOSARTAN 50MG TABLET PO SCH (10:02)
[2018-02-12] MEDS: HYDROCHLOROTHIAZIDE 12.5 MG CAPSULE PO SCH (10:03)
[2018-02-12] MEDS ORDERED: MAGNESIUM SULFATE PMX 2GM/50ML 50 ML IV ONE (11:00)
[2018-02-12 12:50] VITALS: BP 109/66
[2018-02-12 14:17] VITALS: BP 127/80
[2018-02-12] MEDS ORDERED: POTASSIUM CHLORIDE 20 MEQ TAB.ER.PRT PO SCH (17:00)
[2018-02-12 18:56] VITALS: BP 106/65
[2018-02-12] MEDS: ASPIRIN 81 MG TABLET CHEW PO SCH (20:53)
[2018-02-12] MEDS: PRAVASTATIN 40 MG TABLET PO SCH (20:53)
[2018-02-12] MEDS: MAGNESIUM CHLORIDE 64 MG TABLET.DR PO SCH (20:53)
[2018-02-12 23:36] VITALS: BP 120/70
[2018-02-13] MEDS: GUAIFENESIN ER 600 MG TABLET PO SCH ×2 (00:10→12:16)
[2018-02-13] MEDS: HEPARIN 5,000 UNITS/ML, 1ML SQ SCH ×2 (00:10→07:49)
[2018-02-13 07:23] VITALS: BP 126/81
[2018-02-13] MEDS: LEVOTHYROXINE 75 MCG TABLET PO SCH (07:50)
[2018-02-13] MEDS: DOCUSATE 100 MG CAPSULE PO SCH (07:50)
[2018-02-13] MEDS: HYDROCHLOROTHIAZIDE 12.5 MG CAPSULE PO SCH (07:50)
[2018-02-13] MEDS: MAGNESIUM CHLORIDE 64 MG TABLET.DR PO SCH (07:51)
[2018-02-13] MEDS: LOSARTAN 50MG TABLET PO SCH (07:51)
[2018-02-13] MEDS: FUROSEMIDE 20 MG/2 ML IV SCH (07:51)
[2018-02-13] MEDS: ALBUTEROL/IPRATROPIUM 2.5MG/0.5MG, 3 ML NPPB SCH ×2 (08:01→10:58)
[2018-02-13] MEDS: TEMPLATE NON-FORMULARY MED. (Cyclosporine (Restasis) 1 DROP) OP SCH (09:00)
[2018-02-13] MEDS ORDERED: IPRA3AMP30 NPPB (12:51)
[2018-02-13] MEDS ORDERED: DOCU-131 PO (12:51)
[2018-02-13] MEDS ORDERED: GUAI600T31 PO (12:51)
[2018-02-13] MEDS ORDERED: FURO20TA3 PO (12:51)
[2018-02-13] MEDS ORDERED: MAGN64TA7 PO (12:51)
[2018-02-13] MEDS ORDERED: POTA20TA89 PO (12:51)
[2018-02-13 13:15] VITALS: BP 123/71
== END 2018-02-13 14:18 | disposition home or self-care (01) | DRG 867 ==
LOC: ED 21:11 → EDIP 22:04 → 3NE 22:38
PROVIDERS: ADMIT Internal Medicine; ATTEND Internal Medicine
DX: A31.9 Mycobacterial infection, unspecified (principal); J96.21 Acute and chronic respiratory failure with hypoxia; I50.43 Acute on chronic combined systolic (congestive) and diastolic (congestive) heart failure; J44.1 Chronic obstructive pulmonary disease with (acute) exacerbation; J84.9 Interstitial pulmonary disease, unspecified; I11.0 Hypertensive heart disease with heart failure; I25.10 Atherosclerotic heart disease of native coronary artery without angina pectoris; Z96.641 Presence of right artificial hip joint; K59.00 Constipation, unspecified; E03.9 Hypothyroidism, unspecified; E78.5 Hyperlipidemia, unspecified; Z87.891 Personal history of nicotine dependence; Z99.81 Dependence on supplemental oxygen; Z79.82 Long term (current) use of aspirin; I25.2 Old myocardial infarction; Z82.49 Family history of ischemic heart disease and other diseases of the circulatory system; Z90.710 Acquired absence of both cervix and uterus; Z90.49 Acquired absence of other specified parts of digestive tract
CPT/HCPCS: 36415; 71045; 71046; 80048; 80053; 80061; 81003; 83036; 83735; 84439; 84443; 85025; 86171; 86331; 86480; 87070; 87077; 87186; 87205; 93005; 94640; 99285; G0378; J1644; J7620; J1940; J3475; J7512

== ENCOUNTER → 2018-02-15 | Outpatient (CLI) | payer MEDICARE, OTHER ==
[~2018-02-15] MED LIST changes: +GUAI600T31 PO; +IPRA3AMP30 NPPB; +MAGN64TA7 PO
== END | disposition home or self-care (01) ==
LOC: CFH 10:28
PROVIDERS: ATTEND Nurse Practitioner
DX: R91.1 Solitary pulmonary nodule (principal)
CPT/HCPCS: 71250

== ENCOUNTER 2018-03-10 07:21 | Inpatient (IN) | payer MEDICARE, OTHER ==
[~2018-03-10] VITALS: Ht 152.4 cm; Wt 66.7 kg
[~2018-03-10 07:21] MED LIST changes: +HYDR12.517 PO; -HYDR12.53 PO
[2018-03-10] MEDS ORDERED: PROPOFOL 100 ML IV PRN ×2 (07:32→14:06)
[2018-03-10] MEDS ORDERED: SODIUM CHLORIDE FLUSH 10ML SYR IVF ONE (08:00)
[2018-03-10] MEDS ORDERED: PROPOFOL 10 MG/ML, 100ML IV ONE (08:00)
[2018-03-10] MEDS ORDERED: SODIUM CHLORIDE 0.9% 1,000ML IVBOLUS ONE ×2 (08:00→09:00)
[2018-03-10] MEDS ORDERED: PLEASE ENTER HEIGHT AND WEIGHT MC SCH (08:00)
[2018-03-10] MEDS ORDERED: VECURONIUM 10 MG IVPush ONE (08:00)
[2018-03-10] MEDS ORDERED: PLEASE ENTER ALLERGIES MC SCH (08:00)
[2018-03-10] MEDS ORDERED: VECURONIUM 10 MG ONE (08:00)
[2018-03-10 08:19] LABS: MEAN CORPUSCULAR HEMOGLOBIN 24.8 pg (27.0-34.8); MEAN CORPUSCULAR HGB CONC 31.3 g/dL (32.4-35.8); MEAN PLATELET VOLUME 10.4 fL (7.4-10.4); PLATELET COUNT 204 x10^3/uL (130-400); RED BLOOD COUNT 4.57 x10^6/uL (3.82-5.3); RED CELL DISTRIBUTION WIDTH 19.4 % (9.6-15.2)
[2018-03-10] MEDS ORDERED: PIPERACILLIN/TAZO/PMX 3.375GM 50 ML IV ONE (08:30)
[2018-03-10] MEDS ORDERED: PIPERACILLIN/TAZO/PMX 3.375GM 50 ML ONE (08:31)
[2018-03-10 08:32] LABS: ALANINE AMINOTRANSFERASE 46 U/L (12-78); ALBUMIN 2.4 g/dL (3.4-5.0); ANION GAP 11 mmol/L (5-15); CALCIUM 7.9 mg/dL (8.5-10.1); CHLORIDE 99 mmol/L (98-107); CREATININE 0.92 mg/dL (0.55-1.02)
[2018-03-10 08:37] LABS: BILIRUBIN,TOTAL 0.6 mg/dL (0.2-1.0); INTERNATIONAL NORMALIZED RATIO 1.08 (0.93-1.1); PROTHROMBIN TIME 11.4 Seconds (9.6-11.5); TOTAL PROTEIN 5.9 g/dL (6.4-8.2); TROPONIN I 0.096 ng/mL (0.000-0.045)
[2018-03-10 08:41] LABS: MD YES
[2018-03-10 08:44] LABS: BAND#(MANUAL) 0.23 x10^3/uL; BANDS%(MANUAL) 1 % (0-7); BASOS#(MANUAL) 0.23 x10^3/uL (0-0.3); BASOS% (MANUAL) 1 % (0-1); EOS#(MANUAL) 0.69 x10^3/uL (0.0-0.8); EOS% (MANUAL) 3 % (1-7); LYMPH#(MANUAL) 1.83 x10^3/uL (1-6.1); LYMPHS% (MANUAL) 8 % (22-44); MONOS#(MANUAL) 0.23 x10^3/uL (0.3-2.7); MONOS% (MANUAL) 1 % (2-9); SEG#(MANUAL) 19.69 x10^3/uL (1.8-8); SEGS% (MANUAL) 86 % (42-75)
[2018-03-10 08:45] LABS: <PLATELET ESTIMATE> ADEQUATE; <PLT MORPHOLOGY> NORMAL PLT MORPH; ANISOCYTOSIS 1+; MICROCYTOSIS 1+
[2018-03-10] MEDS: SENNA/DOCUSATE TABLET PO SCH (09:00)
[2018-03-10] MEDS ORDERED: ASPIRIN 300 MG SUPP PR ONE (09:00)
[2018-03-10] MEDS ORDERED: BISACODYL 10 MG SUPP PR PRN ×2 (09:00→14:30)
[2018-03-10] MEDS ORDERED: POLYETHYLENE GLYCOL 17 GM PACKET PO PRN (09:00)
[2018-03-10] MEDS ORDERED: ACETAMINOPHEN 325 MG TABLET PO PRN (09:00)
[2018-03-10] MEDS ORDERED: LABETALOL 5MG/ML, 20ML IVPush PRN (09:00)
[2018-03-10] MEDS ORDERED: OXYcodone IR 5MG TABLET PO PRN (09:00)
[2018-03-10] MEDS ORDERED: VANCOMYCIN PER PHARMACY MC PRN (09:00)
[2018-03-10] MEDS ORDERED: MAGNESIUM SULFATE PMX 2GM/50ML 50 ML IV ONE (09:00)
[2018-03-10] MEDS ORDERED: ONDANSETRON 2MG/ML, 2ML IVPush PRN (09:00)
[2018-03-10] MEDS ORDERED: ENALAPRILAT 1.25 MG/ML, 2ML IVPush PRN (09:00)
[2018-03-10 09:14] LABS: MICROSCOPIC INDICATED
[2018-03-10 09:29] LABS: CULTURE INDICATED? YES
[2018-03-10 09:42] LABS: FREE T4 (FREE THYROXINE) 1.25 ng/dL (0.76-1.46); THYROID STIMULATING HORMONE 3.69 mIU/L (0.358-3.740)
[2018-03-10] MEDS ORDERED: OMNIPAQUE 350 MG/ML, 100ML BOTTLE ONE (09:43)
[2018-03-10] MEDS ORDERED: PHARMACOKINETIC MONITORING MC PRN (10:30)
[2018-03-10] MEDS ORDERED: PHARMACOKINETIC CONSULTATION MC ONE (10:30)
[2018-03-10] MEDS ORDERED: VANCOMYCIN 1,300 MG in SODIUM CHLORIDE 0.9% 250 ML IV ONE (11:30)
[2018-03-10] MEDS: ENOXAPARIN 40 MG/0.4 ML SQ SCH (12:29)
[2018-03-10] MEDS: FAMOTIDINE 20 MG/2 ML IVPush SCH ×2 (12:29→20:45)
[2018-03-10] MEDS ORDERED: SODIUM PHOSPHATE 20 MMOL in SODIUM CHLORIDE 0.9% 250 ML IVPB PRN (14:06)
[2018-03-10] MEDS ORDERED: DEXMEDETOMIDINE 200 MCG in SODIUM CHLORIDE 0.9% 48 ML IV PRN (14:06)
[2018-03-10] MEDS ORDERED: FENTANYL PF 250 MCG in SODIUM CHLORIDE 0.9% 250 ML IV PRN (14:06)
[2018-03-10] MEDS: ALBUTEROL/IPRATROPIUM 2.5MG/0.5MG, 3 ML INLINE SCH ×3 (14:25→23:04)
[2018-03-10] MEDS ORDERED: BUSPIRONE 10 MG TABLET NG ONE (14:30)
[2018-03-10] MEDS ORDERED: SENNA/DOCUSATE TABLET NG PRN (14:30)
[2018-03-10] MEDS ORDERED: FAMOTIDINE 20 MG/2 ML IV SCH (14:30)
[2018-03-10] MEDS ORDERED: PHARMACY MAY ADJ FOR RENAL FX MC SCH (14:30)
[2018-03-10] MEDS ORDERED: LIDOCAINE-MPF 1%, 2ML ENDO PRN (14:30)
[2018-03-10] MEDS: KSCALE TO 4.0 IV SCH ×3 (14:30→22:30)
[2018-03-10] MEDS ORDERED: FENTANYL PF 100 MCG/2ML IVPush PRN (14:30)
[2018-03-10] MEDS ORDERED: SENNOSIDES 8.8 MG/5 ML ORAL SOL NG PRN (14:30)
[2018-03-10] MEDS ORDERED: LACTULOSE 20 GM/30 ML UDC NG PRN (14:30)
[2018-03-10] MEDS: morphine SULFATE 10 MG/ML, 1ML IVPush PRN ×2 (14:58→15:48)
[2018-03-10] MEDS: BUSPIRONE 10 MG TABLET NG SCH ×2 (15:36→22:51)
[2018-03-10 15:48] LABS: TROPONIN I 0.237 ng/mL (0.000-0.045)
[2018-03-10] MEDS: SODIUM CHLORIDE 0.9% 1,000 ML IV SCH ×2 (15:48→18:53)
[2018-03-10] MEDS: MAGNESIUM SULFATE 1 GM in SODIUM CHLORIDE 0.9% 50 ML IVPB PRN ×2 (16:05→21:38)
[2018-03-10] MEDS: PIPERACILLIN/TAZO/PMX 3.375GM 50 ML IV SCH ×2 (16:29→22:46)
[2018-03-10] MEDS ORDERED: POTASSIUM CHLORIDE PMX 100 ML IV ONE ×3 (16:30→23:45)
[2018-03-10] MEDS ORDERED: REGULAR INSULIN 62.5 UNITS in SODIUM CHLORIDE 0.9% 249.375 ML IV PRN (16:30)
[2018-03-10] MEDS: FENTANYL PF 2,500 MCG in SODIUM CHLORIDE 0.9% 200 ML IV PRN (17:25)
[2018-03-10] MEDS: VECURONIUM 10 MG IVPush PRN (17:55)
[2018-03-10] MEDS: ARTIFICIAL TEARS OINT 3.5 GM EACHEYE SCH (18:03)
[2018-03-10 19:23] LABS: TROPONIN I 0.313 ng/mL (0.000-0.045)
[2018-03-10] MEDS: PROPOFOL 100 ML IV PRN (20:16)
[2018-03-10 20:45] VITALS: BP 166/94
[2018-03-11] MEDS: LORazepam 2 MG/ML, 1ML IVPush PRN ×5 (00:36→15:29)
[2018-03-11] MEDS: ARTIFICIAL TEARS OINT 3.5 GM EACHEYE SCH ×3 (02:12→17:54)
[2018-03-11 02:29] LABS: MEAN CORPUSCULAR HEMOGLOBIN 24.3 pg (27.0-34.8); MEAN CORPUSCULAR HGB CONC 31.5 g/dL (32.4-35.8); MEAN PLATELET VOLUME 11.4 fL (7.4-10.4); PLATELET COUNT 208 x10^3/uL (130-400); RED BLOOD COUNT 4.94 x10^6/uL (3.82-5.3); RED CELL DISTRIBUTION WIDTH 19.4 % (9.6-15.2)
[2018-03-11] MEDS: KSCALE TO 4.0 IV SCH ×6 (02:30→22:30)
[2018-03-11 02:35] LABS: MD YES
[2018-03-11 02:37] LABS: <PLATELET ESTIMATE> ADEQUATE; ANISOCYTOSIS 1+; BANDS%(MANUAL) 1 % (0-7); LYMPH#(MANUAL) 1.33 x10^3/uL (1-3.4); LYMPHS% (MANUAL) 14 % (22-44); MICROCYTOSIS 1+; MONOS#(MANUAL) 0.48 x10^3/uL (0.3-2.7); MONOS% (MANUAL) 5 % (2-9); OVALOCYTES 1+; SEGS% (MANUAL) 80 % (42-75)
[2018-03-11 02:38] LABS: LARGE PLATELETS 1+
[2018-03-11] MEDS: SODIUM CHLORIDE 0.9% 1,000 ML IV SCH ×2 (02:40→13:41)
[2018-03-11] MEDS ORDERED: CALCIUM CHLORIDE 13.6 MEQ in DEXTROSE 5% 100 ML IV ONE (03:00)
[2018-03-11] MEDS: PIPERACILLIN/TAZO/PMX 3.375GM 50 ML IV SCH ×4 (03:03→22:40)
[2018-03-11] MEDS: ALBUTEROL/IPRATROPIUM 2.5MG/0.5MG, 3 ML INLINE SCH ×6 (03:06→22:38)
[2018-03-11 03:50] LABS: ALANINE AMINOTRANSFERASE 49 U/L (12-78); ALBUMIN 2.6 g/dL (3.4-5.0); ANION GAP 14 mmol/L (5-15); CALCIUM 7.8 mg/dL (8.5-10.1); CHLORIDE 102 mmol/L (98-107); CREATININE 0.67 mg/dL (0.55-1.02)
[2018-03-11] MEDS: NOREPINEPHRINE 4 MG in SODIUM CHLORIDE 0.9% 246 ML IV PRN ×2 (03:50→12:05)
[2018-03-11 03:53] LABS: ALKALINE PHOSPHATASE 197 U/L (45-117); BILIRUBIN,TOTAL 0.6 mg/dL (0.2-1.0); CHOL/HDL RATIO 2.6; CHOLESTEROL, TOTAL 169 mg/dL (140-239); HDL CHOL % 38 % (28-40); HDL CHOLESTEROL (DIRECT) 65 mg/dL (40-60); LDL CHOLESTEROL,CALCULATED 93 mg/dL (54-169); LDL/HDL RATIO 1.4 (0.5-3.0); TOTAL PROTEIN 6.2 g/dL (6.4-8.2); TRIGLYCERIDES 55 mg/dL (50-200); VLDL CHOLESTEROL 11 mg/dL (0-25)
[2018-03-11] MEDS: VECURONIUM 10 MG IVPush PRN (04:08)
[2018-03-11] MEDS ORDERED: POTASSIUM CHLORIDE PMX 100 ML IV ONE ×2 (04:30→06:30)
[2018-03-11] MEDS: BUSPIRONE 10 MG TABLET NG SCH ×3 (06:30→22:40)
[2018-03-11] MEDS: SENNA/DOCUSATE TABLET PO SCH (08:28)
[2018-03-11] MEDS: FAMOTIDINE 20 MG/2 ML IVPush SCH ×2 (09:20→20:30)
[2018-03-11] MEDS: VANCOMYCIN 1,100 MG in SODIUM CHLORIDE 0.9% 250 ML IV SCH (09:20)
[2018-03-11] MEDS ORDERED: SODIUM CHLORIDE 0.9%, 500ML IVBOLUS ONE ×4 (10:30→15:00)
[2018-03-11] MEDS: ENOXAPARIN 40 MG/0.4 ML SQ SCH (11:18)
[2018-03-11] MEDS: PROPOFOL 100 ML IV PRN ×2 (13:42→20:30)
[2018-03-11 14:35] LABS: ANION GAP 10 mmol/L (5-15); CALCIUM 8.3 mg/dL (8.5-10.1); CHLORIDE 106 mmol/L (98-107); CREATININE 0.81 mg/dL (0.55-1.02)
[2018-03-11 14:58] LABS: ALKALINE PHOSPHATASE 198 U/L (45-117)
[2018-03-11] MEDS: MAGNESIUM SULFATE 1 GM in SODIUM CHLORIDE 0.9% 50 ML IVPB PRN (15:12)
[2018-03-11] MEDS ORDERED: DEXTROSE 50%, 50ML SYRINGE IVPush ONE (15:30)
[2018-03-11] MEDS ORDERED: INSULIN REGULAR 100 UNITS/ML, 3ML VIAL IVPush ONE (15:30)
[2018-03-11] MEDS ORDERED: SODIUM BICARB 8.4%, 50ML SYRINGE IVPush ONE (15:30)
[2018-03-11] MEDS ORDERED: VASOPRESSIN 100 UNIT in SODIUM CHLORIDE 0.9% 495 ML IV PRN (17:30)
[2018-03-11] MEDS: NOREPINEPHRINE 8 MG in SODIUM CHLORIDE 0.9% 242 ML IV PRN (22:58)
[2018-03-12] MEDS: SODIUM CHLORIDE 0.9% 1,000 ML IV SCH ×3 (00:53→20:53)
[2018-03-12] MEDS: ALBUTEROL/IPRATROPIUM 2.5MG/0.5MG, 3 ML INLINE SCH ×6 (02:20→22:18)
[2018-03-12] MEDS: KSCALE TO 4.0 IV SCH ×2 (02:30→06:30)
[2018-03-12] MEDS: ARTIFICIAL TEARS OINT 3.5 GM EACHEYE SCH (03:15)
[2018-03-12] MEDS: NOREPINEPHRINE 8 MG in SODIUM CHLORIDE 0.9% 242 ML IV PRN ×2 (03:36→09:10)
[2018-03-12] MEDS ORDERED: POTASSIUM CHLORIDE PMX 100 ML IV ONE (04:00)
[2018-03-12] MEDS: PIPERACILLIN/TAZO/PMX 3.375GM 50 ML IV SCH ×4 (04:51→23:19)
[2018-03-12] MEDS: BUSPIRONE 10 MG TABLET NG SCH (05:53)
[2018-03-12 06:18] LABS: MEAN CORPUSCULAR HEMOGLOBIN 25.5 pg (27.0-34.8); MEAN CORPUSCULAR HGB CONC 32.6 g/dL (32.4-35.8); MEAN PLATELET VOLUME 10.9 fL (7.4-10.4); PLATELET COUNT 244 x10^3/uL (130-400); RED BLOOD COUNT 4.58 x10^6/uL (3.82-5.3); RED CELL DISTRIBUTION WIDTH 19.9 % (9.6-15.2)
[2018-03-12 06:26] LABS: ALANINE AMINOTRANSFERASE 40 U/L (12-78); ALBUMIN 2.3 g/dL (3.4-5.0); ANION GAP 10 mmol/L (5-15); CALCIUM 8.2 mg/dL (8.5-10.1); CHLORIDE 109 mmol/L (98-107); CREATININE 1.04 mg/dL (0.55-1.02)
[2018-03-12 06:29] LABS: ALKALINE PHOSPHATASE 152 U/L (45-117); BILIRUBIN,TOTAL 0.4 mg/dL (0.2-1.0); TOTAL PROTEIN 5.8 g/dL (6.4-8.2)
[2018-03-12] MEDS: PROPOFOL 100 ML IV PRN ×2 (06:34→23:20)
[2018-03-12 07:12] LABS: MD YES
[2018-03-12 07:14] LABS: BASOS#(MANUAL) 0.29 x10^3/uL (0-0.1); BASOS% (MANUAL) 2 % (0-1); LYMPH#(MANUAL) 0.86 x10^3/uL (1-3.4); LYMPHS% (MANUAL) 6 % (22-44); MONOS#(MANUAL) 0.86 x10^3/uL (0.3-2.7); MONOS% (MANUAL) 6 % (2-9); REACTIVE LYMPHS # (MANUAL) 0.14 x10^3/uL (0-0); REACTIVE LYMPHS % (MANUAL) 1 % (0-0); SEG#(MANUAL) 12.24 x10^3/uL (1.8-6.8); SEGS% (MANUAL) 85 % (42-75)
[2018-03-12 07:16] LABS: <PLATELET ESTIMATE> ADEQUATE; CRENATED 1+; MICROCYTOSIS 1+; OVALOCYTES 1+
[2018-03-12 07:17] LABS: LARGE PLATELETS 1+
[2018-03-12] MEDS: MAGNESIUM SULFATE 1 GM in SODIUM CHLORIDE 0.9% 50 ML IVPB PRN (07:44)
[2018-03-12] MEDS: SENNA/DOCUSATE TABLET PO SCH (08:51)
[2018-03-12] MEDS: FAMOTIDINE 20 MG/2 ML IVPush SCH ×2 (09:10→21:01)
[2018-03-12] MEDS: VANCOMYCIN 1,100 MG in SODIUM CHLORIDE 0.9% 250 ML IV SCH (10:34)
[2018-03-12] MEDS: ALBUMIN HUMAN 25% 100 ML IV SCH ×2 (10:35→17:05)
[2018-03-12] MEDS: ENOXAPARIN 40 MG/0.4 ML SQ SCH (11:39)
[2018-03-12] MEDS: LEVOTHYROXINE 75 MCG TABLET PO SCH (11:39)
[2018-03-12] MEDS: TEMPLATE NON-FORMULARY MED. (Cyclosporine (Restasis) 1 DROP) OP SCH (21:00)
[2018-03-12] MEDS: PRAVASTATIN 40 MG TABLET PO SCH (21:02)
[2018-03-12] MEDS: ASPIRIN 81 MG TABLET EC PO SCH (21:02)
[2018-03-12] MEDS: LORazepam 2 MG/ML, 1ML IVPush PRN (21:13)
[2018-03-13] MEDS: ALBUTEROL/IPRATROPIUM 2.5MG/0.5MG, 3 ML INLINE SCH ×6 (02:07→22:30)
[2018-03-13] MEDS: ALBUMIN HUMAN 25% 100 ML IV SCH ×3 (02:55→16:33)
[2018-03-13] MEDS: PIPERACILLIN/TAZO/PMX 3.375GM 50 ML IV SCH ×4 (04:09→22:47)
[2018-03-13 04:42] LABS: ANION GAP 10 mmol/L (5-15); CALCIUM 8.1 mg/dL (8.5-10.1); CHLORIDE 112 mmol/L (98-107); CREATININE 0.86 mg/dL (0.55-1.02); TRIGLYCERIDES 120 mg/dL (50-200)
[2018-03-13] MEDS: PROPOFOL 100 ML IV PRN ×2 (05:39→14:18)
[2018-03-13 05:49] LABS: BASOPHILS # (AUTO) 0.02 x10^3/uL (0-0.1); BASOPHILS % (AUTO) 0 % (0-1); EOSINOPHILS # (AUTO) 0.05 x10^3/uL (0-0.4); EOSINOPHILS % (AUTO) 1 % (1-7); LYMPHOCYTES # (AUTO) 0.83 x10^3/uL (1-3.4); LYMPHOCYTES % (AUTO) 12 % (22-44); MD NO; MEAN CORPUSCULAR HEMOGLOBIN 25.1 pg (27.0-34.8); MEAN CORPUSCULAR HGB CONC 32.2 g/dL (32.4-35.8); MEAN PLATELET VOLUME 11.2 fL (7.4-10.4); MONOCYTES # (AUTO) 0.45 x10^3/uL (0.2-0.8); MONOCYTES % (AUTO) 7 % (2-9); NEUTROPHILS # (AUTO) 5.59 x10^3/uL (1.8-6.8); NEUTROPHILS % (AUTO) 81 % (42-75); PLATELET COUNT 142 x10^3/uL (130-400); RED BLOOD COUNT 3.36 x10^6/uL (3.82-5.3); RED CELL DISTRIBUTION WIDTH 20.3 % (9.6-15.2)
[2018-03-13] MEDS ORDERED: POTASSIUM CHLORIDE 10% 40 MEQ/30 ML UDC PO ONE (07:30)
[2018-03-13] MEDS ORDERED: MAGNESIUM SULFATE IN WATER 50 ML IVPB ONE (07:30)
[2018-03-13] MEDS: SENNA/DOCUSATE TABLET PO SCH (08:21)
[2018-03-13] MEDS: TEMPLATE NON-FORMULARY MED. (Cyclosporine (Restasis) 1 DROP) OP SCH ×2 (08:21→21:00)
[2018-03-13] MEDS ORDERED: MAGNESIUM SULFATE 4 GM in SODIUM CHLORIDE 0.9% 100 ML IV ONE (08:30)
[2018-03-13] MEDS: LEVOTHYROXINE 75 MCG TABLET PO SCH (08:31)
[2018-03-13] MEDS: FAMOTIDINE 20 MG/2 ML IVPush SCH ×2 (08:31→21:34)
[2018-03-13] MEDS: MICONAZOLE CRM 2%, 15GM TP SCH ×3 (08:31→21:36)
[2018-03-13] MEDS: ENOXAPARIN 40 MG/0.4 ML SQ SCH (11:25)
[2018-03-13] MEDS ORDERED: VECURONIUM 10 MG ONE (12:09)
[2018-03-13] MEDS: SODIUM CHLORIDE 0.9% 1,000 ML IV SCH (14:18)
[2018-03-13] MEDS: PRAVASTATIN 40 MG TABLET PO SCH (21:34)
[2018-03-13] MEDS: ASPIRIN 81 MG TABLET EC PO SCH (21:34)
[2018-03-14] MEDS ORDERED: ALBUMIN HUMAN 25% 50 ML IV ONE
[2018-03-14] MEDS: SODIUM CHLORIDE 0.9% 1,000 ML IV SCH ×3 (01:31→21:11)
[2018-03-14] MEDS: ALBUMIN HUMAN 25% 100 ML IV SCH (01:32)
[2018-03-14] MEDS: PROPOFOL 100 ML IV PRN ×3 (01:33→18:46)
[2018-03-14] MEDS: ALBUTEROL/IPRATROPIUM 2.5MG/0.5MG, 3 ML INLINE SCH ×6 (02:30→22:13)
[2018-03-14] MEDS ORDERED: FUROSEMIDE 20 MG/2 ML IV ONE ×2 (02:30)
[2018-03-14] MEDS: PIPERACILLIN/TAZO/PMX 3.375GM 50 ML IV SCH ×4 (03:57→21:40)
[2018-03-14 04:36] LABS: MEAN CORPUSCULAR HEMOGLOBIN 24.6 pg (27.0-34.8); MEAN CORPUSCULAR HGB CONC 31.5 g/dL (32.4-35.8); MEAN PLATELET VOLUME 11.4 fL (7.4-10.4); PLATELET COUNT 146 x10^3/uL (130-400); RED BLOOD COUNT 3.42 x10^6/uL (3.82-5.3); RED CELL DISTRIBUTION WIDTH 20.5 % (9.6-15.2)
[2018-03-14 04:46] LABS: CHLORIDE 113 mmol/L (98-107)
[2018-03-14 04:58] LABS: ANION GAP 12 mmol/L (5-15); CALCIUM 8.6 mg/dL (8.5-10.1); CREATININE 0.95 mg/dL (0.55-1.02)
[2018-03-14 05:01] LABS: BASOPHILS # (AUTO) 0.02 x10^3/uL (0-0.1); BASOPHILS % (AUTO) 0 % (0-1); EOSINOPHILS # (AUTO) 0.06 x10^3/uL (0-0.4); EOSINOPHILS % (AUTO) 1 % (1-7); LYMPHOCYTES % (AUTO) 16 % (22-44); MD SCAN; MONOCYTES # (AUTO) 0.21 x10^3/uL (0.2-0.8); MONOCYTES % (AUTO) 3 % (2-9); NEUTROPHILS % (AUTO) 80 % (42-75)
[2018-03-14] MEDS: FENTANYL PF 2,500 MCG in SODIUM CHLORIDE 0.9% 200 ML IV PRN (05:54)
[2018-03-14] MEDS ORDERED: DEXTROSE 50%, 50ML SYRINGE IVPush PRN (06:30)
[2018-03-14] MEDS ORDERED: DEXTROSE 4 GM TAB.CHEW PO PRN (06:30)
[2018-03-14] MEDS ORDERED: GLUCAGON 1 MG IM PRN (06:30)
[2018-03-14] MEDS ORDERED: DEXTROSE 50%, 50ML SYRINGE IVPush ONE (06:30)
[2018-03-14] MEDS ORDERED: MIDAZOLAM 1 MG/ML, 5ML ONE ×2 (08:00→08:39)
[2018-03-14] MEDS ORDERED: ROCURONIUM 10 MG/ML,10ML ONE (08:00)
[2018-03-14] MEDS ORDERED: POTASSIUM PHOSPHATE 44 MEQ in SODIUM CHLORIDE 0.9% 500 ML IV ONE (08:30)
[2018-03-14] MEDS ORDERED: MIDAZOLAM 1 MG/ML, 5ML IVPush ONE (08:45)
[2018-03-14] MEDS ORDERED: ROCURONIUM 10 MG/ML,10ML IVPush ONE (08:45)
[2018-03-14] MEDS: TEMPLATE NON-FORMULARY MED. (Cyclosporine (Restasis) 1 DROP) OP SCH ×2 (09:00→21:00)
[2018-03-14] MEDS: FAMOTIDINE 20 MG/2 ML IVPush SCH ×2 (10:20→21:11)
[2018-03-14] MEDS: LEVOTHYROXINE 75 MCG TABLET PO SCH (10:21)
[2018-03-14] MEDS: ENOXAPARIN 40 MG/0.4 ML SQ SCH (10:22)
[2018-03-14] MEDS: SENNA/DOCUSATE TABLET PO SCH (10:40)
[2018-03-14] MEDS: SODIUM CHLORIDE FLUSH 10ML SYR IVF SCH ×2 (10:40→21:11)
[2018-03-14] MEDS: PRAVASTATIN 40 MG TABLET PO SCH (21:12)
[2018-03-14] MEDS: ASPIRIN 81 MG TABLET EC PO SCH (21:12)
[2018-03-14] MEDS ORDERED: D5%-0.45% NACL 1,000 ML IV SCH (22:30)
[2018-03-15] MEDS: ALBUTEROL/IPRATROPIUM 2.5MG/0.5MG, 3 ML INLINE SCH ×6 (02:47→23:34)
[2018-03-15 04:36] LABS: FIO2 30 %
[2018-03-15] MEDS: PROPOFOL 100 ML IV PRN ×2 (04:37→16:44)
[2018-03-15] MEDS: PIPERACILLIN/TAZO/PMX 3.375GM 50 ML IV SCH ×4 (04:38→23:06)
[2018-03-15 04:48] LABS: BASOPHILS # (AUTO) 0.02 x10^3/uL (0-0.1); BASOPHILS % (AUTO) 0 % (0-1); EOSINOPHILS % (AUTO) 1 % (1-7); LYMPHOCYTES # (AUTO) 0.99 x10^3/uL (1-3.4); LYMPHOCYTES % (AUTO) 13 % (22-44); MD NO; MEAN CORPUSCULAR HEMOGLOBIN 24.9 pg (27.0-34.8); MEAN CORPUSCULAR HGB CONC 32.4 g/dL (32.4-35.8); MEAN CORPUSCULAR VOLUME 76.9 fL (80-100); MEAN PLATELET VOLUME 10.9 fL (7.4-10.4); MONOCYTES # (AUTO) 0.37 x10^3/uL (0.2-0.8); MONOCYTES % (AUTO) 5 % (2-9); NEUTROPHILS % (AUTO) 80 % (42-75); PLATELET COUNT 167 x10^3/uL (130-400); RED BLOOD COUNT 3.52 x10^6/uL (3.82-5.3); RED CELL DISTRIBUTION WIDTH 19.9 % (9.6-15.2)
[2018-03-15 05:11] LABS: ANION GAP 12 mmol/L (5-15); CALCIUM 7.9 mg/dL (8.5-10.1); CHLORIDE 111 mmol/L (98-107); CREATININE 0.77 mg/dL (0.55-1.02)
[2018-03-15] MEDS ORDERED: POTASSIUM CHLORIDE 10% 40 MEQ/30 ML UDC PO ONE ×2 (06:30→10:30)
[2018-03-15] MEDS ORDERED: MAGNESIUM SULFATE PMX 4GM/100M 100 ML IVPB ONE (06:30)
[2018-03-15] MEDS ORDERED: POTASSIUM PHOSPHATE 44 MEQ in SODIUM CHLORIDE 0.9% 500 ML IV ONE (06:30)
[2018-03-15] MEDS: SENNA/DOCUSATE TABLET PO SCH (08:21)
[2018-03-15] MEDS: ASPIRIN 81 MG TABLET CHEW PO SCH (08:35)
[2018-03-15] MEDS: TEMPLATE NON-FORMULARY MED. (Cyclosporine (Restasis) 1 DROP) OP SCH ×2 (08:36→20:45)
[2018-03-15] MEDS: FAMOTIDINE 20 MG/2 ML IVPush SCH ×2 (08:36→20:44)
[2018-03-15] MEDS: LEVOTHYROXINE 75 MCG TABLET PO SCH (08:36)
[2018-03-15] MEDS: SODIUM CHLORIDE FLUSH 10ML SYR IVF SCH ×2 (08:37→20:44)
[2018-03-15] MEDS: ENOXAPARIN 40 MG/0.4 ML SQ SCH (10:56)
[2018-03-15] MEDS ORDERED: MIDAZOLAM 1 MG/ML, 2ML IVPush PRN (12:00)
[2018-03-15] MEDS: MIDAZOLAM 1 MG/ML, 2ML IVPush PRN ×2 (13:16→13:41)
[2018-03-15] MEDS ORDERED: PHENYTOIN SODIUM IV ONE (16:30)
[2018-03-15] MEDS ORDERED: SODIUM CHLORIDE 0.9% IV ONE (16:30)
[2018-03-15] MEDS ORDERED: FILTER 0.22 MICRON FOR PHENYTOIN IV PRN (17:00)
[2018-03-15] MEDS: PHENYTOIN SODIUM 50 MG/ML, 2ML IVPush SCH (20:44)
[2018-03-15] MEDS: PRAVASTATIN 40 MG TABLET PO SCH (20:44)
[2018-03-15] MEDS: SODIUM CHLORIDE 0.9%, 500ML IVBOLUS PRN (23:26)
[2018-03-16] MEDS: SODIUM CHLORIDE 0.9%, 500ML IVBOLUS PRN (00:37)
[2018-03-16] MEDS: ALBUTEROL/IPRATROPIUM 2.5MG/0.5MG, 3 ML INLINE SCH ×3 (02:40→10:00)
[2018-03-16 04:27] LABS: MEAN CORPUSCULAR HEMOGLOBIN 25.5 pg (27.0-34.8); MEAN CORPUSCULAR HGB CONC 32.9 g/dL (32.4-35.8); MEAN CORPUSCULAR VOLUME 77.4 fL (80-100); MEAN PLATELET VOLUME 10.9 fL (7.4-10.4); PLATELET COUNT 153 x10^3/uL (130-400); RED BLOOD COUNT 3.48 x10^6/uL (3.82-5.3); RED CELL DISTRIBUTION WIDTH 20.3 % (9.6-15.2)
[2018-03-16 04:36] LABS: ANION GAP 5 mmol/L (5-15); CALCIUM 7.8 mg/dL (8.5-10.1); CHLORIDE 113 mmol/L (98-107)
[2018-03-16 04:41] LABS: CREATINE KINASE, TOTAL 78 U/L (26-192); CREATININE 0.77 mg/dL (0.55-1.02); TRIGLYCERIDES 80 mg/dL (50-200)
[2018-03-16 05:08] LABS: BASOPHILS # (AUTO) 0.06 x10^3/uL (0-0.1); BASOPHILS % (AUTO) 1 % (0-1); EOSINOPHILS % (AUTO) 5 % (1-7); LYMPHOCYTES # (AUTO) 1.17 x10^3/uL (1-3.4); LYMPHOCYTES % (AUTO) 18 % (22-44); MD SCAN; MONOCYTES # (AUTO) 0.66 x10^3/uL (0.2-0.8); MONOCYTES % (AUTO) 10 % (2-9); NEUTROPHILS # (AUTO) 4.41 x10^3/uL (1.8-6.8); NEUTROPHILS % (AUTO) 67 % (42-75)
[2018-03-16] MEDS: PIPERACILLIN/TAZO/PMX 3.375GM 50 ML IV SCH ×2 (05:17→09:26)
[2018-03-16] MEDS: PROPOFOL 100 ML IV PRN (05:18)
[2018-03-16] MEDS ORDERED: SODIUM CHLORIDE 0.9% 1,000ML IVBOLUS ONE (05:30)
[2018-03-16] MEDS ORDERED: LORazepam 2 MG/ML, 1ML IVPush ONE (08:30)
[2018-03-16] MEDS: FAMOTIDINE 20 MG/2 ML IVPush SCH (08:55)
[2018-03-16] MEDS: PHENYTOIN SODIUM 50 MG/ML, 2ML IVPush SCH (08:55)
[2018-03-16] MEDS: TEMPLATE NON-FORMULARY MED. (Cyclosporine (Restasis) 1 DROP) OP SCH (08:56)
[2018-03-16] MEDS: ASPIRIN 81 MG TABLET CHEW PO SCH (08:57)
[2018-03-16] MEDS: LEVOTHYROXINE 75 MCG TABLET PO SCH (08:57)
[2018-03-16] MEDS: SENNA/DOCUSATE TABLET PO SCH (09:00)
[2018-03-16] MEDS: ENOXAPARIN 40 MG/0.4 ML SQ SCH (11:00)
[2018-03-16] MEDS: LORazepam 2 MG/ML, 1ML IVPush PRN (11:45)
[2018-03-16] MEDS ORDERED: LORazepam 10 MG in SODIUM CHLORIDE 0.9% 245 ML IV PRN (12:00)
[2018-03-16] MEDS ORDERED: VORICONAZOLE IV SCH (12:30)
[2018-03-16] MEDS ORDERED: DEXTROSE 5% IV SCH (12:30)
[2018-03-16] MEDS ORDERED: LORazepam 20 MG in SODIUM CHLORIDE 0.9% 240 ML IV PRN (16:00)
[2018-03-17] MEDS ORDERED: VORICONAZOLE IV SCH (12:30)
[2018-03-17] MEDS ORDERED: DEXTROSE 5% IV SCH (12:30)
== END 2018-03-16 15:15 | disposition hospice, home (50) | DRG 870 ==
LOC: EDBD 07:21 → MERGE 07:21 → ED 09:21 → EDIP 09:22 → CCU 10:14
PROVIDERS: ADMIT Internal Medicine; ATTEND Internal Medicine
PROC: 5A1955Z Respiratory Ventilation, Greater than 96 Consecutive Hours (ICD-10-PCS; principal; 2018-03-10)
PROC: 0BH17EZ Insertion of Endotracheal Airway into Trachea, Via Natural or Artificial Opening (ICD-10-PCS; 2018-03-10)
PROC: 5A12012 Performance of Cardiac Output, Single, Manual (ICD-10-PCS; 2018-03-10)
PROC: 02HV33Z Insertion of Infusion Device into Superior Vena Cava, Percutaneous Approach (ICD-10-PCS; 2018-03-10)
PROC: 03HY32Z Insertion of Monitoring Device into Upper Artery, Percutaneous Approach (ICD-10-PCS; 2018-03-10)
DX: A41.9 Sepsis, unspecified organism (principal); J96.21 Acute and chronic respiratory failure with hypoxia; I49.01 Ventricular fibrillation; I50.43 Acute on chronic combined systolic (congestive) and diastolic (congestive) heart failure; J18.0 Bronchopneumonia, unspecified organism; E43 Unspecified severe protein-calorie malnutrition; G93.41 Metabolic encephalopathy; R57.0 Cardiogenic shock; J15.1 Pneumonia due to Pseudomonas; S22.49XA Multiple fractures of ribs, unspecified side, initial encounter for closed fracture; S22.20XA Unspecified fracture of sternum, initial encounter for closed fracture; T17.890A Other foreign object in other parts of respiratory tract causing asphyxiation, initial encounter; E87.2 Acidosis; E87.4 Mixed disorder of acid-base balance; I44.2 Atrioventricular block, complete; I47.2 Ventricular tachycardia; Z99.11 Dependence on respirator [ventilator] status; J44.0 Chronic obstructive pulmonary disease with (acute) lower respiratory infection; D50.9 Iron deficiency anemia, unspecified; D63.8 Anemia in other chronic diseases classified elsewhere; E03.9 Hypothyroidism, unspecified; E16.2 Hypoglycemia, unspecified; E78.5 Hyperlipidemia, unspecified; G25.3 Myoclonus; I07.1 Rheumatic tricuspid insufficiency; I11.0 Hypertensive heart disease with heart failure; I25.10 Atherosclerotic heart disease of native coronary artery without angina pectoris; I25.5 Ischemic cardiomyopathy; I27.21 Secondary pulmonary arterial hypertension; I34.0 Nonrheumatic mitral (valve) insufficiency; I35.8 Other nonrheumatic aortic valve disorders; J44.9 Chronic obstructive pulmonary disease, unspecified; X58.XXXA Exposure to other specified factors, initial encounter; Y93.89 Activity, other specified; Y92.89 Other specified places as the place of occurrence of the external cause; Y99.8 Other external cause status; Z51.5 Encounter for palliative care; Z66 Do not resuscitate; Z82.49 Family history of ischemic heart disease and other diseases of the circulatory system; Z87.891 Personal history of nicotine dependence; Z90.710 Acquired absence of both cervix and uterus; Z95.0 Presence of cardiac pacemaker; Z96.641 Presence of right artificial hip joint; Z98.61 Coronary angioplasty status; Z90.49 Acquired absence of other specified parts of digestive tract; R56.9 Unspecified convulsions; J32.3 Chronic sphenoidal sinusitis
CPT/HCPCS: 0399T; 31500; 36415; 36600; 70551; 71045; 71275; 80048; 80053; 80061; 80202; 81001; 82140; 82330; 82533; 82550; 82728; 82803; 82962; 83540; 83550; 83605; 83735; 83880; 84100; 84132; 84439; 84443; 84478; 84481; 84484; 85025; 85610; 85730; 87040; 87070; 87077; 87081; 87086; 87186; 87205; 93005; 94002; 94003; 94640; 95816; 95819; 96365; 96367; 96372; 96375; 96376; 99291; C8929; G0378; J1165; J1650; J2060; J2250; J2543; J2704; J3370; J3475; J3480; J7030; J7620; P9047; Q9957; Q9967; J1940; J2270; J3490; J7040; J7050